=== PATIENT | female | born 1990 | race Caucasian/White ===

== ENCOUNTER 2017-08-27 08:19 | Emergency (ER) | payer MEDICAID, OTHER ==
[~2017-08-27] VITALS: Ht 154.9 cm; Wt 73.0 kg
[2017-08-27 08:32] VITALS: BP 130/80
--- NOTE | 2017-08-27 08:36 | NUR ---
Patient ambulated to bed 12. RN evaluating patient at bedside.
--- NOTE | 2017-08-27 08:40 | NUR ---
27f presents to the ER with 7/10 "sharp" intermittent RUQ abd pain radiating to R Flank/Shoulder area x "couple of weeks" with intemittent vomitting "green" emesis; Pt denies any diarrhea, fever, or urinary complaints; pt is aox4, rr are even and unlabored; pt positioned for comfort, bed down. nad. awaiting primary er md lala. will continue to monitor.
--- NOTE | 2017-08-27 08:45 | NUR ---
er md rae by bedside examining pt
[2017-08-27] MEDS ORDERED: DICYCLOMINE HCL LIQUID 20 MG, ALUMINUM HYD/MAG/SIMETHICONE 30 ML, LIDOCAINE VISCOUS 2% ... PO ONE ×3 (08:50)
[2017-08-27] MEDS ORDERED: KETOROLAC 30 MG/ML VIAL IM ONE (08:50)
--- NOTE | 2017-08-27 09:09 | NUR ---
us by bedside
[2017-08-27 09:14] LABS: APPEARANCE,URINE HAZY (CLEAR); BILIRUBIN,URINE NEGATIVE (NEGATIVE); BLOOD, URINE TRACE-I (NEGATIVE); COLOR,URINE YELLOW (YELLOW); LEUKOCYTE ESTERASE ,URINE 1+ (NEGATIVE); NITRITE, URINE NEGATIVE (NEGATIVE); UGLUCOSE NEGATIVE (NEGATIVE)
[2017-08-27 09:16] LABS: ANION GAP 12.9 (8-16); CARBON DIOXIDE 23.8 mmol/L (21-32); CREATININE 0.7 mg/dL (0.6-1.3); POTASSIUM 3.7 mmol/L (3.5-5.1)
[2017-08-27 09:22] LABS: ALBUMIN 3.7 g/dL (3.4-5.0); TOTAL BILIRUBIN 0.4 mg/dL (0.0-1.0)
[2017-08-27 09:42] LABS: RBC,URINE NONE SEEN /HPF (0-5)
[2017-08-27 09:54] LABS: BASOPHILS # (AUTO) 0.2 K/uL (0.00-0.22); EOSINOPHILS # (AUTO) 0.1 K/uL (0-0.4); EOSINOPHILS % (AUTO) 2.2 % (0.0-4.0); HEMATOCRIT 39.4 % (36-48); HEMOGLOBIN 13.2 g/dL (12.0-16.0); LYMPHOCYTES # (AUTO) 1.2 K/uL (2.5-16.5); LYMPHOCYTES % (AUTO) 22.2 % (20.5-51.1); MEAN CORPUSCULAR HEMOGLOBIN 28 pg (27-31); MEAN CORPUSCULAR HGB CONC 34 g/dL (33-37); MEAN CORPUSCULAR VOLUME 85 fL (80-94); MONOCYTES # (AUTO) 0.4 K/uL (0.8-1.0); MONOCYTES % (AUTO) 6.9 % (1.7-9.3); NEUTROPHILS # (AUTO) 3.7 K/uL (1.8-7.7); NEUTROPHILS % (AUTO) 65.7 % (42.2-75.2); PLATELET COUNT (AUTO) 283 K/uL (140-450); RED BLOOD CELL COUNT(AUTO) 4.65 MIL/uL (4.20-5.40); WHITE BLOOD COUNT (AUTO) 5.6 K/uL (4.8-10.8)
--- NOTE | 2017-08-27 10:28 | NUR ---
Patient discharged with v/s stable. Written and verbal after care instructions given and explained. Patient alert, oriented and verbalized understanding of instructions. Ambulatory with steady gait. All questions addressed prior to discharge. ID band removed. Patient advised to follow up with PMD. Rx of Naprosyn and Tylenol with Codeine given. Patient educated on indication of medication including possible reaction and side effects. Opportunity to ask questions provided and answered.
[2017-08-27 10:29] VITALS: BP 106/76
== END 2017-08-27 10:28 | disposition home or self-care (01) ==
LOC: MED 08:19
DX: K80.20 Calculus of gallbladder without cholecystitis without obstruction (principal)
CPT/HCPCS: 36415; 76705; 80053; 81001; 83690; 85025; 87086; 96372; 99285; J1885; Q0092; 81025

== ENCOUNTER 2017-09-20 19:10 | Inpatient (IN) | payer MEDICAID ==
[~2017-09-20] VITALS: Ht 154.9 cm; Wt 72.1 kg
[2017-09-20 19:19] VITALS: BP 132/76
--- NOTE | 2017-09-20 19:26 | NUR ---
TO LOBBY, A/W BED, VSLisa, SARINA, ERMApoorva NOTED
--- NOTE | 2017-09-20 19:35 | NUR ---
PT TAKEN TO BED 11
--- NOTE | 2017-09-20 20:01 | NUR ---
27Y/F PT. PRESESNT TO ED WITH C/O RT. FLANK PAIN X 2 WKS. PT. WAS DIAGNOSED GALL STONE, PAIN EXIST. AAO X4, AMBULATORY WITH STEADYGAIT. RESPIRATIONS ROOM AIR, EVEN AND UNLABORED. ABODMEN SOFT, NON TENDER. ACTIVE BS X4. C/O PAIN 06/03. VSS, ER MADE AWARE OF PT. STATUS.
--- NOTE | 2017-09-20 20:10 | NUR ---
Patient being evaluated by at bedside.
[2017-09-20] MEDS ORDERED: NACL 0.9% 500 ML IV ONE (20:14)
[2017-09-20] MEDS ORDERED: KETOROLAC 30 MG/ML VIAL IVP ONE (20:15)
[2017-09-20] MEDS ORDERED: ONDANSETRON 4 MG/2 ML VIAL IVP ONE (20:15)
[2017-09-20 21:22] LABS: BASOPHILS # (AUTO) 0.2 K/uL (0.00-0.22); BASOPHILS % (AUTO) 4.9 % (0.0-2.0); EOSINOPHILS # (AUTO) 0.1 K/uL (0-0.4); EOSINOPHILS % (AUTO) 1.8 % (0.0-4.0); HEMATOCRIT 40.5 % (36-48); HEMOGLOBIN 13.5 g/dL (12.0-16.0); LYMPHOCYTES # (AUTO) 1.5 K/uL (2.5-16.5); MEAN CORPUSCULAR HEMOGLOBIN 29 pg (27-31); MEAN CORPUSCULAR HGB CONC 33 g/dL (33-37); MEAN CORPUSCULAR VOLUME 86 fL (80-94); MONOCYTES # (AUTO) 0.4 K/uL (0.8-1.0); MONOCYTES % (AUTO) 7.8 % (1.7-9.3); NEUTROPHILS # (AUTO) 2.3 K/uL (1.8-7.7); NEUTROPHILS % (AUTO) 51.5 % (42.2-75.2); PLATELET COUNT (AUTO) 257 K/uL (140-450); RED BLOOD CELL COUNT(AUTO) 4.71 MIL/uL (4.20-5.40); RED CELL DISTRIBUTION WIDTH 12.6 % (11.6-13.7); WHITE BLOOD COUNT (AUTO) 4.5 K/uL (4.8-10.8)
[2017-09-20 21:33] LABS: ANION GAP 11.3 (8-16); CARBON DIOXIDE 30.3 mmol/L (21-32); CREATININE 0.6 mg/dL (0.6-1.3); POTASSIUM 3.6 mmol/L (3.5-5.1)
[2017-09-20 21:44] LABS: ALBUMIN 4.1 g/dL (3.4-5.0); TOTAL BILIRUBIN 2.9 mg/dL (0.0-1.0)
[2017-09-20] MEDS ORDERED: ACETAMINOPHEN 325 MG TAB PO PRN (22:15)
--- NOTE | 2017-09-20 22:45 | NUR ---
Patient will be admitted to care of . Admited to TELE. Will go to room. Belongings list completed. Report to SHANNAN ZENG.
--- NOTE | 2017-09-20 22:45 | NUR ---
PT ARRIVED VIA WHEELCHAIR FROM ED, PT STABLE, AMBULATED TO RESTROOM FIRST THEN WALKED TO BED, TOLERATED WELL, GAIT STABLE, IV TO L AC 18 G RUNNING NS @ 100ML/HR, INFUSING WELL, PT STATED PAIN TOLERABLE AT 4/10 ON THE ABD, INITIAL ASSESSMENT DONE, ALL SAFETY PRECAUTION MET, WILL CONTINUE TO MONITOR. Addendum: 09/21/17 at 0129 by Latonya Ken RN BEDSIDE REPORT RECEIVED FROM ED NURSEEMMIE RN
[2017-09-20 23:00] VITALS: BP 118/74
[2017-09-20] MEDS: NACL 0.9% 1,000 ML IV SCH (23:00)
--- NOTE | 2017-09-20 23:40 | NUR ---
DR. WILSON BY BEDSIDE TALKING TO PT, PT STABLE, NO DISTRESS NOTED.
[2017-09-21 00:10] LABS: CHOL/HDL RATIO 2.9 (1-4.5); FREE T4 (FREE THYROXINE) 1.14 ng/dL (0.76-1.46); PHOSPHORUS 3.3 mg/dL (2.5-4.9); THYROID STIMULATING HORMONE 1.18 uIU/mL (0.34-3.74)
[2017-09-21] MEDS ORDERED: HYDROmorphone 1 MG/ML AMP IVP PRN (00:15)
[2017-09-21] MEDS ORDERED: KETOROLAC 30 MG/ML VIAL IM ONE (00:20)
[2017-09-21 00:24] LABS: PROTHROMBIN TIME 10.4 secs (10.8-13.4)
[2017-09-21] MEDS ORDERED: HYDROmorphone PFS 2 MG/ML SYR IVP PRN (01:08)
[2017-09-21] MEDS ORDERED: KETOROLAC 30 MG/ML VIAL ONE (01:10)
--- NOTE | 2017-09-21 01:13 | NUR ---
PT C/O OF PAIN ON RUQ OF THE ABD, 01/01, PAIN MEDICATION GIVEN PER DR AN. VERIFIED WITH DR. WILSON REGARDING PAIN MEDICATION ROUTE, DR STATED IVP IS OK. WILL CONTINUED ADMINISTRATION OF PAIN MEDICATION. PT TOLERATED WELL, NO DISTRESS NOTED, CALL LIGHT WITHIN REACH, WILL CONTINUE TO MONITOR.
--- NOTE | 2017-09-21 02:55 | NUR ---
CHECKED ON PT, PT SLEEPING, NO DISTRESS NOTED, CALL LIGHT WITHIN REACH, WILL CONTINUE TO MONITOR.
[2017-09-21 04:00] VITALS: BP 96/59
[2017-09-21] MEDS: NACL 0.9% 1,000 ML IV SCH ×3 (04:34→18:12)
--- NOTE | 2017-09-21 06:35 | NUR ---
PT WAS PICKED UP BY [employer] FOR [facility] VIA WHEELCHAIR, PT LEFT THE UNIT IN STABLE CONDITION, NO DISTRESS NOTED.
--- NOTE | 2017-09-21 07:11 | NUR ---
ENDORSED PLAN OF CARE TO DAY SHIFT NURSE NAIMA RN FOR CONTINUITY OF CARE, PT STILL NOT BACK FROM [facility].
--- NOTE | 2017-09-21 07:12 | NUR ---
RECEIVED REPORT FROM THE SOLUTION ADVISOR NURSE FOR CONTINUITY OF CARE. PT IS OFF THE UNIT FOR H[facility] SCAN AT [facility]. PT HASN'T RETURNED YET. UPDATED THE BOARD. WILL AWAIT PT'S RETURN. PER CHARGE NURSE, ERCP PROCEDURE IS SCHEDULE ON THE BIG BOARD. WILL GET CONSENT AND WILL DO THE PRE-OP CHECKLIST.
[2017-09-21 07:20] LABS: BASOPHILS # (AUTO) 0.2 K/uL (0.00-0.22); BASOPHILS % (AUTO) 4.9 % (0.0-2.0); EOSINOPHILS # (AUTO) 0.1 K/uL (0-0.4); EOSINOPHILS % (AUTO) 2.7 % (0.0-4.0); HEMATOCRIT 36.7 % (36-48); HEMOGLOBIN 12.7 g/dL (12.0-16.0); LYMPHOCYTES # (AUTO) 1.6 K/uL (2.5-16.5); LYMPHOCYTES % (AUTO) 31.7 % (20.5-51.1); MEAN CORPUSCULAR HEMOGLOBIN 30 pg (27-31); MEAN CORPUSCULAR HGB CONC 35 g/dL (33-37); MEAN CORPUSCULAR VOLUME 86 fL (80-94); MONOCYTES # (AUTO) 0.4 K/uL (0.8-1.0); MONOCYTES % (AUTO) 9.1 % (1.7-9.3); NEUTROPHILS # (AUTO) 2.6 K/uL (1.8-7.7); NEUTROPHILS % (AUTO) 51.6 % (42.2-75.2); PLATELET COUNT (AUTO) 239 K/uL (140-450); RED BLOOD CELL COUNT(AUTO) 4.27 MIL/uL (4.20-5.40); RED CELL DISTRIBUTION WIDTH 12.9 % (11.6-13.7); WHITE BLOOD COUNT (AUTO) 4.9 K/uL (4.8-10.8)
[2017-09-21 07:55] LABS: ANION GAP 12.6 (8-16); CARBON DIOXIDE 26.4 mmol/L (21-32); CREATININE 0.6 mg/dL (0.6-1.3)
[2017-09-21 07:57] LABS: MAGNESIUM 1.9 mg/dL (1.8-2.4); PHOSPHORUS 3.6 mg/dL (2.5-4.9)
--- NOTE | 2017-09-21 07:58 | NUR ---
PT RETURNED BACK TO BED FROM [facility]. WILL TAKE HER AGAIN IN AN HOUR FOR DELAY PICTURES. EXPLAINED TO TECH THAT SHE IS SCHEDULED FOR ERCP AT 0830. SHE WILL TAKE HER BACK NOW AND START DELAY PICTURES.
[2017-09-21] MEDS: DOCUSATE SODIUM 100 MG GELCAP PO SCH ×2 (08:04→20:34)
--- NOTE | 2017-09-21 08:16 | NUR ---
OR HERE TO TAKE PT FOR PROCEDURE. ADVISED THEM PT IS AT [facility] FOR DELAYED PICTURES, HIDA SCAN. THEY WILL TAKE BED AND CHART. THEY WILL TAKE HER FROM [facility] TO THE OR DIRECTLY. GAVE THEM THE UNSIGNED CONSENT. THEY WILL GET HER SIGNATURE. PREOP CHECK LIST DONE. WILL AWAIT PT'S RETURN.
[2017-09-21] MEDS ORDERED: PROPOFOL 200 MG/20 ML VIAL IV ONE (08:45)
[2017-09-21] MEDS: PANTOPRAZOLE 40 MG INJ VIAL IVP SCH (08:55)
[2017-09-21] MEDS ORDERED: MIDAZOLAM 2 MG/2 ML VIAL ONE (08:56)
[2017-09-21] MEDS ORDERED: fentaNYL 0.05 MG/ML VIAL ONE (08:56)
[2017-09-21] MEDS ORDERED: LACTATED RINGERS 1,000 ML IV SCH (09:22)
--- NOTE | 2017-09-21 09:24 | NUR ---
PATIENT HAS BEEN SCREENED AND CATEGORIZED HIGH NUTRITION RISK. PATIENT WILL BE SEEN WITHIN 1-2 DAYS OF ADMISSION. 09/21/17 - 09/22/17 JAYLON CAREY MBA, RD
[2017-09-21] MEDS ORDERED: diphenhydrAMINE 50 MG/ML VIAL IVP PRN (09:25)
[2017-09-21] MEDS ORDERED: MEPERIDINE 25 MG/ML SYR IVP PRN (09:25)
[2017-09-21] MEDS ORDERED: ONDANSETRON 4 MG/2 ML VIAL IVP PRN (09:25)
[2017-09-21 10:10] VITALS: BP 97/60
--- NOTE | 2017-09-21 10:10 | NUR ---
PT ARRIVED BACK FROM O/R. 2 OR NURSES ACCOMPANIED PT. PT AWAKE AND ORIENTED. DENIES PAIN. V/S STABLE. NO SIGNS OF DISTRESS. INTRODUCED MYSELF. IV ON L AC 18G LR INFUSING AT THIS TIME. WILL CONTINUE TO MONITOR PT.
--- NOTE | 2017-09-21 11:20 | NUR ---
PT RESTING COMFORTABLY. NO SIGNS OF DISTRESS. NO COMPLAINTS AT THIS TIME. WONDERING IF DR. PATEL WILL WILL BE HERE SOON, TO DECIDE IF SHE WILL HAVE SURGERY OR NOT. WILL CONTINUE TO MONITOR PT.
[2017-09-21 12:00] VITALS: BP 110/70
--- NOTE | 2017-09-21 13:19 | NUR ---
PT RESTING COMFORTABLY. FINISHED THE LR. STARTED HER BACK ON NS AT 150ML/HR. SIGNIFICANT OTHER AT BEDSIDE. NO SIGNS OF DISTRESS. NO COMPLAINTS AT THIS TIME. WILL CONTINUE TO MONITOR PT.
--- NOTE | 2017-09-21 13:55 | NUR ---
DR. PATEL IS HERE. HE ASSESSED PT AND EXPLAINED THE LAP BRAYDON PROCEDURE. PT VERBALIZED UNDERSTANDING. SIGNED CONSENT FOR PROCEDURE. IN CHART. SHE WILL EAT TODAY AND NPO AT MIDNIGHT. SHE WILL HAVE PROCEDURE TOMORROW.
--- NOTE | 2017-09-21 15:47 | NUR ---
PT SLEEPING. SIGNIFICANT OTHER AT BEDSIDE. NO COMPLAINTS. WILL CONTINUE TO MONITOR PT.
[2017-09-21 16:00] VITALS: BP 93/55
--- NOTE | 2017-09-21 18:00 | NUR ---
DINNER TRAY DIDN'T COME. CALLED AND ASKED THEM TO BRING A LATE TRAY. PT AWARE THAT SHE IS TO BE NPO AT MIDNIGHT FOR PROCEDURE TOMORROW.
--- NOTE | 2017-09-21 19:11 | NUR ---
ENDORSED PT TO THE POWER PLANT INSTALLER NURSE AT BEDSIDE FOR CONTINUITY OF CARE. PT IN STABLE CONDITION.
--- NOTE | 2017-09-21 19:15 | NUR ---
RECEIVED REPORT FROM AM NURSE. PT RESTING IN BED, AOX4, AMBULATORY, ABLE TO VERBALIZE NEEDS. PT IS S/P ERCP WITH STONE EXTRACTION (09/21). PT DENIES PAIN OR NAUSEA, PT REPORTS EATING DINNER TODAY. DISCUSSED PLAN OF CARE WITH PT, PT TO BE NPO AT MIDNIGHT FOR LAP CHOLECYSTECTOMY, POSSIBLE OPEN, POSSIBLE EXP LAP, PT VERBALIZED UNDERSTANDING. IV ACCESS ASYMPTOMATIC, PATENT AND INTACT, IVF INFUSING WELL. ALL NEEDS MET. SAFETY MEASURES ENSURED. CALL LIGHT WITHIN REACH.
[2017-09-21 20:00] VITALS: BP 105/64
--- NOTE | 2017-09-21 20:37 | NUR ---
ADMINISTERED DUE MED COLACE PO WITH EDUCATION. PT VERBALIZED UNDERSTANDING, TOLERATED MED WELL. PT REPORTED THAT DR WILSON CAME TO SPEAK WITH HER ABOUT TOMORROW'S SURGERY, ALL HER QUESTIONS ANSWERED, PT VERBALIZED UNDERSTANDING. ALL NEEDS MET. IVF INFUSING WELL. SAFETY MEASURES ENSURED. CALL LIGHT WITHIN REACH.
[2017-09-22] VITALS: BP 101/69
--- NOTE | 2017-09-22 00:03 | NUR ---
PT RESTING COMFORTABLY, PT DENIES PAIN AND NAUSEA. DISCUSSED WITH PT TO REMAIN NPO, PT VERBALIZED UNDERSTANDING. ALL NEEDS MET. IVF INFUSING WELL. SAFETY MEASURES ENSURED. CALL LIGHT WITHIN REACH.
[2017-09-22] MEDS: NACL 0.9% 1,000 ML IV SCH ×2 (01:01→07:26)
--- NOTE | 2017-09-22 03:44 | NUR ---
PT SLEEPING COMFORTABLY, NO S/S OF ACUTE DISTRESS. ALL NEEDS MET. IVF INFUSING WELL. SAFETY MEASURES ENSURED. CALL LIGHT WITHIN REACH.
[2017-09-22 04:00] VITALS: BP 102/58
--- NOTE | 2017-09-22 07:15 | NUR ---
ENDORSED PLAN OF CARE TO AM NURSE. CONDITION STABLE.
--- NOTE | 2017-09-22 07:16 | NUR ---
RECEIVED REPORT FROM EQUINE DENTIST NURSE. PATIENT LYING DOWN IN BED SLEEPING, AROUSABLE BY VOICE. NO DISTRESS NOTED. DENIES ANY PAIN AT THIS TIME. RESPIRATIONS EVEN, UNLABORED, ON ROOM AIR. AAOX4, CALM, COOPERATIVE, SKIN COLOR APPROPRIATE TO ETHNICITY, WARM TO TOUCH. SKIN IS INTACT. LUNGS CTA ON ALL LOBES. ABDOMEN SOFT, NON-DISTENDED. IV SITE INTACT, PATENT AND INFUSING IVF PER ORDERS. REVIEWED PLAN OF CARE WITH PATIENT. PATIENT SCHEDULED FOR LAP CHOLECYSTECTOMY AROUND 1130 TODAY. PATIENT VERBALIZED UNDERSTANDING. SAFETY MEASURES IN PLACE, CALL LIGHT WITHIN REACH. WILL CONTINUE TO MONITOR.
[2017-09-22 07:20] LABS: ALBUMIN 2.9 g/dL (3.4-5.0); ANION GAP 11.4 (8-16); CARBON DIOXIDE 26.3 mmol/L (21-32); CREATININE 0.5 mg/dL (0.6-1.3); POTASSIUM 3.7 mmol/L (3.5-5.1); TOTAL BILIRUBIN 3.1 mg/dL (0.0-1.0)
[2017-09-22 07:21] LABS: HEMATOCRIT 35.2 % (36-48); HEMOGLOBIN 11.7 g/dL (12.0-16.0); MEAN CORPUSCULAR HEMOGLOBIN 29 pg (27-31); MEAN CORPUSCULAR HGB CONC 33 g/dL (33-37); MEAN CORPUSCULAR VOLUME 87 fL (80-94); PLATELET COUNT (AUTO) 214 K/uL (140-450); RED BLOOD CELL COUNT(AUTO) 4.07 MIL/uL (4.20-5.40); RED CELL DISTRIBUTION WIDTH 12.9 % (11.6-13.7); WHITE BLOOD COUNT (AUTO) 4.9 K/uL (4.8-10.8)
[2017-09-22 07:49] LABS: BARBITURATE, URINE NEG. ng/ml (NEG <=200); BENZODIAZEPINE, URINE POS. ng/mL (NEG <=200); CANNABINOID, URINE NEG. ng/mL (NEG <=50); COCAINE, URINE NEG. ng/mL (NEG <=300); OPIATE, URINE NEG. ng/mL (NEG <=2000); PHENCYCLIDINE SCREEN,URINE NEG. ng/mL (NEG <=25)
[2017-09-22 07:53] LABS: APPEARANCE,URINE CLEAR (CLEAR); BILIRUBIN,URINE 2+ (NEGATIVE); BLOOD, URINE NEGATIVE (NEGATIVE); COLOR,URINE YELLOW (YELLOW); LEUKOCYTE ESTERASE ,URINE TRACE (NEGATIVE); NITRITE, URINE NEGATIVE (NEGATIVE); PH,URINE 6.5 (5.0-9.0); UGLUCOSE NEGATIVE (NEGATIVE)
[2017-09-22 08:00] VITALS: BP 105/54
[2017-09-22 08:15] LABS: RBC,URINE 0-5 (RARE) /HPF (0-5); WBC,URINE 0-5 (RARE) /HPF (0-5)
[2017-09-22 08:30] LABS: EOSINOPHILS % (MANUAL) 3 % (0-4); LYMPHOCYTES % (MANUAL) 50 % (20-46); MONOCYTES % (MANUAL) 8 % (5-12)
[2017-09-22] MEDS: PANTOPRAZOLE 40 MG INJ VIAL IVP SCH (09:05)
[2017-09-22] MEDS: DOCUSATE SODIUM 100 MG GELCAP PO SCH ×2 (09:31→20:20)
--- NOTE | 2017-09-22 09:34 | NUR ---
PATIENT SITTING IN BED PLAYING ON HER PHONE. NO DISTRESS NOTED. DENIES ANY PAIN AT THIS TIME. SCHEDULED MEDICATIONS DUE GIVEN. SAFETY MEASURES IN PLACE, CALL LIGHT WITHIN REACH. WILL CONTINUE TO MONITOR.
--- NOTE | 2017-09-22 11:15 | NUR ---
OR NURSES ON UNIT TO TAKE PATIENT DOWN TO OR FOR LAP CHOLECYSTECTOMY. WILL CONTINUE TO MONITOR WHEN PATIENT COMES BACK ON UNIT.
[2017-09-22] MEDS ORDERED: BUPIVACAINE-MPF 0.25% 30 ML VIAL INJ ONE (11:21)
[2017-09-22] MEDS ORDERED: SUCCINYLCHOLINE CHLORIDE 200 MG/10 ML VIAL IV ONE (11:30)
[2017-09-22] MEDS ORDERED: ONDANSETRON 4 MG/2 ML VIAL IVP ONE (11:30)
[2017-09-22] MEDS ORDERED: ROCURONIUM 50 MG/5 ML VIAL IV ONE (11:30)
[2017-09-22] MEDS ORDERED: DESFLURANE 240 ML BTL INH ONE (11:30)
[2017-09-22] MEDS ORDERED: KETOROLAC 60 MG/2 ML VIAL IM ONE (11:30)
[2017-09-22] MEDS ORDERED: GLYCOPYRROLATE 0.2 MG/ML VIAL IV ONE (11:30)
[2017-09-22] MEDS ORDERED: PROPOFOL 200 MG/20 ML VIAL IV ONE (11:30)
[2017-09-22] MEDS ORDERED: DEXAMETHASONE 4 MG/ML VIAL IVP ONE (11:30)
[2017-09-22] MEDS ORDERED: PHENYLEPHRINE 10 MG/ML VIAL IM ONE (11:30)
[2017-09-22] MEDS ORDERED: MEPERIDINE 50 MG/ML SYR ONE (11:46)
[2017-09-22] MEDS ORDERED: MIDAZOLAM 2 MG/2 ML VIAL ONE (11:46)
[2017-09-22] MEDS ORDERED: fentaNYL 0.05 MG/ML VIAL ONE (11:46)
[2017-09-22] MEDS ORDERED: LEVOFLOXACIN 500 MG/D5W PREMIX 100 ML IV ONE (12:15)
[2017-09-22] MEDS ORDERED: MIDAZOLAM 2 MG/2 ML VIAL IVP ONE (12:30)
[2017-09-22] MEDS ORDERED: MEPERIDINE 25 MG/ML SYR IVP PRN ×2 (12:30)
[2017-09-22] MEDS ORDERED: THROMBIN KIT 20 MU VIAL TP ONE (12:49)
[2017-09-22] MEDS: HYDROmorphone PFS 2 MG/ML SYR IVP PRN ×4 (13:50→14:20)
[2017-09-22] MEDS ORDERED: HYDROmorphone PFS 2 MG/ML SYR ONE (13:53)
[2017-09-22 14:30] VITALS: BP 106/66
--- NOTE | 2017-09-22 14:30 | NUR ---
PATIENT BACK ON MST UNIT AND BACK TO ROOM FROM PACU. NO DISTRESS NOTED. PAIN WITHIN TOLERABLE AT THIS TIME ON ABDOMEN DUE TO SURGERY. PATIENT STILL RECOVERING FROM ANESTHESIA. REPORT RECEIVED FROM OR NURSE. V/S TAKEN AND STABLE. PATIENT DROWSY AT THIS TIME, WILL LET HER REST. IVF CONNECTED AND RUNNING PER MD ORDERS. SAFETY MEASURES IN PLACE, CALL LIGHT WITHIN REACH. WILL CONTINUE TO MONITOR.
[2017-09-22] MEDS: DEXT 5% / NACL 0.45% 1,000 ML IV SCH (14:58)
--- NOTE | 2017-09-22 16:20 | NUR ---
09/22/2017 RD INITIAL ASSESSMENT COMPLETED PLEASE REFER TO NUTRITION ASSESSMENT UNDER CARE ACTIVITY FOR ESTIMATED NUTRITIONAL NEEDS. CONTINUE NPO STATUS UNTIL MEDICALLY APPROPRIATE TO ADVANCE DIET. ADVANCE DIET TOLERATED ONCE APPROPRIATE TO REGULAR DIET RD TO FOLLOW-UP IN 5-7 DAYS PATIENT IS LOW RISK. KADI ERIC, RD
[2017-09-22] MEDS: HYDROcodone/APAP 7.5/325 MG 1 TAB PO PRN ×2 (16:21→23:20)
--- NOTE | 2017-09-22 16:23 | NUR ---
PATIENT LYING IN BED WITH FAMILY MEMBER AT BEDSIDE. WATCHING TV. COMPLAINTS OF DULL ABDOMINAL PAIN. WILL MEDICATE WITH NORCO PER ORDERS. IV SITE INTACT, PATENT, AND INFUSING IVF PER ORDERS. SAFETY MEASURES IN PLACE, CALL LIGHT WITHIN REACH. WILL CONTINUE TO MONITOR.
--- NOTE | 2017-09-22 16:53 | NUR ---
PATIENT LYING DOWN IN BED COMFORTABLY. FAMILY MEMBER AT BEDSIDE. NO DISTRESS NOTED. PAIN DECREASING WITH NORCO GIVEN EARLIER. WORKED WITH INCENTIVE SPIROMETER WITH PATIENT. UNABLE TO DO MUCH AT THIS TIME DUE TO PAIN ON ABD DUE TO S/P LAP CHOLECYSTECTOMY. WILL CONTINUE TO MONITOR.
--- NOTE | 2017-09-22 18:07 | NUR ---
PATIENT SITTING IN BED WITH DINNER TRAY IN FRONT. NO DISTRESS NOTED. DENIES ANY PAIN AT THIS TIME. FAMILY MEMBER AT BEDSIDE. SAFETY MEASURES IN PLACE, CALL LIGHT WITHIN REACH. WILL CONTINUE TO MONITOR.
--- NOTE | 2017-09-22 18:37 | NUR ---
PATIENT REPORTS EATING A LITTLE BIT OF THE SOUP FOR DINNER. DENIES ANY NAUSEA/VOMITING. REPORTS NO VOIDING YET. SAFETY MEASURES IN PLACE, CALL LIGHT WITHIN REACH. WILL CONTINUE TO MONITOR.
--- NOTE | 2017-09-22 19:15 | NUR ---
GAVE REPORT TO COMMUNICATIONS ENGINEER NURSE FOR CONTINUITY OF CARE. PATIENT IN STABLE CONDITION.
--- NOTE | 2017-09-22 19:30 | NUR ---
RECEIVED REPORT FROM AM NURSE. PT RESTING IN BED, AOX4, AMBULATORY, ABLE TO VERBALIZE NEEDS. PT IS S/P CHEYENNE BRYSON TODAY (09/22/17), 4 INCISIONS ON ABD NOTED WITH GLUE. PT REPORTS ABD PAIN AT THIS TIME AFTER GOING TO THE RESTROOM, WILL MEDICATE. PT DENIES NAUSEA, REPORTS POOR DINNER INTAKE DUE TO ABD PAIN. DISCUSSED PLAN OF CARE WITH PT. PT VERBALIZED UNDERSTANDING. IV ACCESS ASYMPTOMATIC, PATENT AND INTACT. IVF INFUSING WELL. ALL NEEDS MET. SAFETY MEASURES ENSURED. CALL LIGHT WITHIN REACH.
[2017-09-22 20:00] VITALS: BP 119/86
--- NOTE | 2017-09-22 20:23 | NUR ---
PT REPORTS RELIEF IN PAIN. ADMINISTERED DUE MED COLACE WITH EDUCATION. PT VERBALIZED UNDERSTANDING, TOLERATED MED WELL. ALL NEEDS MET. IVF INFUSING WELL. SAFETY MEASURES ENSURED. CALL LIGHT WITHIN REACH.
[2017-09-22] MEDS: ONDANSETRON 4 MG/2 ML VIAL IVP PRN (20:59)
--- NOTE | 2017-09-22 21:04 | NUR ---
PT C/O NAUSEA AND SLIGHT DIZZINESS AFTER DILAUDID, PT STATED NORCO PO PRN WOULD WORK BETTER FOR HER. ADMINISTERED ZOFRAN IVP PRN WITH EDUCATION, PT VERBALIZED UNDERSTANDING, TOLERATED MED WELL. ALL NEEDS MET. SAFETY MEASURES ENSURED. CALL LIGHT WITHIN REACH.
--- NOTE | 2017-09-22 23:30 | NUR ---
PT C/O ABD PAIN, SEE PAIN ASSESSMENT, ADMINISTERED NORCO PO PRN ORDERED WITH EDUCATION. PT VERBALIZED UNDERSTANDING. PT DENIES NAUSEA/VOMITING, REPORTS BEING ABLE TO TOLERATE FLUIDS, WILL NOTIFY MD. ALL NEEDS MET. IVF INFUSING WELL. SAFETY MEASURES ENSURED.
[2017-09-23] VITALS: BP 123/81
[2017-09-23] MEDS: DEXT 5% / NACL 0.45% 1,000 ML IV SCH ×2 (00:06→10:45)
[2017-09-23] MEDS: ONDANSETRON 4 MG/2 ML VIAL IVP PRN (02:34)
--- NOTE | 2017-09-23 02:34 | NUR ---
PT C/O NAUSEA AND ABD PAIN AFTER AMBULATING TO THE RESTROOM. ADMINISTERED ZOFRAN IVP PRN ORDERED, WILL ADMINISTER PAIN MED WHEN DUE. PT VERBALIZED UNDERSTANDING, TOLERATED MED WELL. ALL NEEDS MET. IVF INFUSING WELL. SAFETY MEASURES ENSURED. CALL LIGHT WITHIN REACH.
[2017-09-23] MEDS: HYDROcodone/APAP 7.5/325 MG 1 TAB PO PRN ×2 (03:44→09:11)
[2017-09-23] MEDS ORDERED: PROMETHAZINE 25 MG TAB PO PRN ×2 (06:30→09:25)
[2017-09-23 07:06] LABS: BASOPHILS # (AUTO) 0.1 K/uL (0.00-0.22); BASOPHILS % (AUTO) 1.6 % (0.0-2.0); EOSINOPHILS % (AUTO) 0.5 % (0.0-4.0); HEMATOCRIT 35.4 % (36-48); HEMOGLOBIN 12.1 g/dL (12.0-16.0); LYMPHOCYTES # (AUTO) 1.6 K/uL (2.5-16.5); LYMPHOCYTES % (AUTO) 19.8 % (20.5-51.1); MEAN CORPUSCULAR HEMOGLOBIN 29 pg (27-31); MEAN CORPUSCULAR HGB CONC 34 g/dL (33-37); MEAN CORPUSCULAR VOLUME 86 fL (80-94); MONOCYTES # (AUTO) 0.6 K/uL (0.8-1.0); MONOCYTES % (AUTO) 7.6 % (1.7-9.3); NEUTROPHILS % (AUTO) 70.5 % (42.2-75.2); PLATELET COUNT (AUTO) 250 K/uL (140-450); RED BLOOD CELL COUNT(AUTO) 4.14 MIL/uL (4.20-5.40); WHITE BLOOD COUNT (AUTO) 8.3 K/uL (4.8-10.8)
--- NOTE | 2017-09-23 07:15 | NUR ---
ENDORSED PLAN OF CARE TO AM NURSE. CONDITION STABLE.
--- NOTE | 2017-09-23 07:20 | NUR ---
RECEIVED REPORT FROM ACID CONCENTRATOR NURSE. PT WAS ASLEEP EASILY AWAKEN. AOX4. AMBULATORY. NO SIGNS OF RESPIRATORY DISTRESS. IV ON THE LEFT AC, PATENT, INTACT, FLUSHING WELL. 4 ABDOMINAL INCISIONS ARE INTACT NO REDNESS OR INFLAMMATION NOTED NO DRAINAGE. DISCUSSED PLAN OF CARE WITH PT. PT VERBALIZED UNDERSTANDING. SAFETY/FALL PRECAUTIONS IN PLACE. CALL LIGHT WITHIN REACH. WILL CONTINUE TO MONITOR.
[2017-09-23 08:00] VITALS: BP 101/61
[2017-09-23 08:33] LABS: ANION GAP 13.2 (8-16); CARBON DIOXIDE 26.7 mmol/L (21-32); POTASSIUM 3.9 mmol/L (3.5-5.1)
[2017-09-23 08:34] LABS: CREATININE 0.6 mg/dL (0.6-1.3); TOTAL BILIRUBIN 1.3 mg/dL (0.0-1.0)
[2017-09-23] MEDS: DOCUSATE SODIUM 100 MG GELCAP PO SCH (09:13)
--- NOTE | 2017-09-23 09:15 | NUR ---
PT RESTING IN BED. PAIN LEVEL REPORTED IS 4/10, "FEELING LIKE PAIN MEDICATION IS STARTING TO WEAR OFF." MEDICATED PRN WITH NORCO. PT WAS ALSO FEELING NAUSEATED. MEDICATED PRN WITH PHENERGAN. NO RESPIRATORY DISTRESS NOTED. CALL LIGHT WITHIN REACH. BED AT LOWEST SETTING.
[2017-09-23] MEDS ORDERED: ACET-2863 PO (10:55)
[2017-09-23] MEDS ORDERED: DOCU100C5 PO (10:55)
[2017-09-23] MEDS ORDERED: ONDA4TAB PO (10:57)
--- NOTE | 2017-09-23 11:25 | NUR ---
PT IN BED RESTING. PT AWARE OF PENDING DISCHARGE. PT IN NO RESPIRATORY DISTRESS. CALL LIGHT WITHIN REACH. BED IN LOWEST POSITION.
[2017-09-23] MEDS ORDERED: INFLUENZA VIRUS VACCINE QUAD 0.5 ML SYR IMVAC SCH (12:50)
--- NOTE | 2017-09-23 13:00 | NUR ---
PT RECEIVED FLU VACCINE, SHE DID NOT WANT AN INJECTION. PT THOUGHT VACCINE WOULD BE GIVEN THROUGH IV. Addendum: 09/23/17 at 1350 by Meenu Marcos RN PT DID NOT RECEIVE FLU VACCINE.
--- NOTE | 2017-09-23 13:05 | NUR ---
PT WAS DISCHARGED. IV WAS DISCONTINUED. IV INTACT. ID BAND REMOVED. PT REFUSED FLU VACCINE. PT THOUGHT IT WOULD BE ADMINISTERED THROUGH IV. PT DID NOT WANT IM INJECTION. PT STABLE UPON DISCHARGE WITH FAMILY.
--- NOTE | 2017-09-23 13:05 | NUR ---
PHOTO TAKEN OF PT ABDOMEN. DOCUMENTED AND PLACED IN PT CHART.
== END 2017-09-23 13:15 | disposition home or self-care (01) | DRG 263 ==
LOC: MED 19:10 → MTU 22:24
PROVIDERS: ADMIT Family Medicine; ATTEND Family Medicine
PROC: BF100ZZ Fluoroscopy of Bile Ducts using High Osmolar Contrast (ICD-10-PCS; 2017-09-21)
PROC: 0FC98ZZ Extirpation of Matter from Common Bile Duct, Via Natural or Artificial Opening Endoscopic (ICD-10-PCS; principal; 2017-09-21 08:30)
PROC: 0FT44ZZ Resection of Gallbladder, Percutaneous Endoscopic Approach (ICD-10-PCS; 2017-09-22)
DX: K80.63 Calculus of gallbladder and bile duct with acute cholecystitis with obstruction (principal); K85.90 Acute pancreatitis without necrosis or infection, unspecified; E11.9 Type 2 diabetes mellitus without complications; R74.0 Nonspecific elevation of levels of transaminase and lactic acid dehydrogenase [LDH]; E78.00 Pure hypercholesterolemia, unspecified; K59.00 Constipation, unspecified
CPT/HCPCS: 36415; 43260; 71045; 74018; 76001; 76705; 78445; 80048; 80053; 80305; 81001; 81025; 82150; 83036; 83690; 83735; 83880; 84100; 84439; 84443; 84484; 85025; 85610; 85730; 86886; 86900; 86901; 87081; 96361; 96374; 96375; 99285; A9510; C1727; C1769; C9113; J0330; J1100; J1170; J1885; J1956; J2175; J2250; J2370; J2405; J2704; J3010; J3490; J7030; Q0092; Q0169

== ENCOUNTER 2018-08-24 12:16 | Emergency (ER) | payer MEDICAID ==
[~2018-08-24] VITALS: Ht 167.6 cm; Wt 72.6 kg
[~2018-08-24 12:16] MED LIST: DOCU100C5 PO; HYDR-5123 PO; ONDA4TAB PO
[2018-08-24 12:19] VITALS: BP 140/87
--- NOTE | 2018-08-24 12:20 | NUR ---
PT TIRAGED AND SENT TO [facility]
--- NOTE | 2018-08-24 13:33 | NUR ---
pt ambulated to bed 10
--- NOTE | 2018-08-24 13:35 | NUR ---
28F BIB DAUGHTER C/O FEELINGS OF HEART RACING AND ANXIETY WHILE AT HOME THIS AM. STATES IT FEELS LIKE A PANIC ATTACK SHES HAD IN THE PAST. DENIES CP/SOB/NVD. AOX4 TO PERSON, PLACE, TIME, AND SITUATION WITH EVEN AND STEADY GAIT; RR ARE EVEN AND UNLABORED; CLEAR SPEECH WITH FULL SETENCES. PT IS CALM AND COOPERATIVE; PATIENT STATES PAIN OF 0/10 AT THIS TIME; VSS; PATIENT POSITIONED FOR COMFORT; HOB ELEVATED;BED DOWN. ER MD MADE AWARE OF PT STATUS.
--- NOTE | 2018-08-24 14:40 | NUR ---
er foyuly by bedside examining patient
[2018-08-24] MEDS ORDERED: LORazepam 1 MG TAB PO ONE (14:45)
--- NOTE | 2018-08-24 15:06 | NUR ---
Patient discharged with v/s stable. Written and verbal after care instructions given and explained. Patient alert, oriented and verbalized understanding of instructions. Ambulatory with steady gait. All questions addressed prior to discharge. ID band removed. Patient advised to follow up with PMD. Rx of Vistaril 25mg given. Patient educated on indication of medication including possible reaction and side effects. Opportunity to ask questions provided and answered.
[2018-08-24 15:07] VITALS: BP 132/80
== END 2018-08-24 15:06 | disposition home or self-care (01) ==
LOC: MED 12:16
DX: F41.0 Panic disorder [episodic paroxysmal anxiety] (principal); Z79.899 Other long term (current) drug therapy
CPT/HCPCS: 99284

== ENCOUNTER 2019-04-08 20:57 | Emergency (ER) | payer SELFPAY ==
[~2019-04-08] VITALS: Ht 162.6 cm; Wt 58.7 kg
[2019-04-08 21:01] VITALS: BP 149/72
--- NOTE | 2019-04-08 21:17 | NUR ---
PT AMBULATED TO BED 03 WITH STEADY GAIT.
--- NOTE | 2019-04-08 21:20 | NUR ---
29 YO FEMALE BIB SELF COMES TO ED FOR C/O LIGHTHEADEDNESS. SYMPTOMS STARTED X1 WEEK AGO ON/OFF. PT AAAOX4 PT DENIES FALL/TRAUMA. PALPABLE PULSES, SKIN PINK WARM DRY INTACT. LUNGS CLEAR EVEN UNLABORED. ABD SOFT NON DISTENDED. GURNEY LOCKED IN LOWEST POSITION. WILL UPDATE ERMD HX: ANEMIA, GALLSTONES MED: DENIES ALLERGIES: DENIES
--- NOTE | 2019-04-08 22:14 | NUR ---
Dr. Herrera examining patient.
--- NOTE | 2019-04-08 22:30 | NUR ---
Patient discharged with v/s stable. Written and verbal after care instructions given and explained. Patient verbalized understanding. Ambulatory with steady gait. All questions addressed prior to discharge. Advised to follow up with PMD.
[2019-04-08 22:36] VITALS: BP 102/65
== END 2019-04-08 22:30 | disposition home or self-care (01) ==
LOC: MED 20:57
DX: F41.0 Panic disorder [episodic paroxysmal anxiety] (principal); D64.9 Anemia, unspecified; Z79.899 Other long term (current) drug therapy
CPT/HCPCS: 81025; 82948; 93005; 99283

== ENCOUNTER 2020-02-18 20:55 | Emergency (ER) | payer OTHER ==
[~2020-02-18] VITALS: Ht 154.9 cm; Wt 76.7 kg
[2020-02-18 22:14] VITALS: BP 138/88
--- NOTE | 2020-02-18 22:19 | NUR ---
Lis cardoza in [facility] - 02/18/20 at 2220 by CLEM PT AMBULATED TO BED 12 WITH STEADY GAIT.
--- NOTE | 2020-02-18 22:25 | NUR ---
30 YO F BIB SELF FOR C/C OF 3/10 LACERATION ON LEFT HAND AFTER CUTTING AN AVOCADO AT HOME 2 HOURS AGO. LACERATION IS ABOUT 1 INCH IN LENGTH. PERIPHERAL PULSES ARE EQUAL AND REGULAR. BED LOCKED AND IN LOWEST POSITION. DENIES TAKING ANY OTC PAIN MEDS NKA MED HX: HAD A VAGINAL DELIVERY 4 WEEKS AGO NO RX
[2020-02-18] MEDS ORDERED: LIDOCAINE/EPI 1% 1:100000 20 ML VIAL INJ ONE (22:50)
--- NOTE | 2020-02-18 23:05 | NUR ---
REZAD PERFORMING LAC REPAIR AT BEDSIDE
[2020-02-19 00:05] VITALS: BP 138/88
== END 2020-02-19 00:05 | disposition home or self-care (01) ==
LOC: MED 20:55
DX: S61.213A Laceration without foreign body of left middle finger without damage to nail, initial encounter (principal); S61.215A Laceration without foreign body of left ring finger without damage to nail, initial encounter; Z79.899 Other long term (current) drug therapy; W26.0XXA Contact with knife, initial encounter; Y93.89 Activity, other specified; Y92.89 Other specified places as the place of occurrence of the external cause; Y99.8 Other external cause status
CPT/HCPCS: 12001; 99283; J2001

== ENCOUNTER 2021-03-02 18:14 | Emergency (ER) | payer BC, OTHER ==
[~2021-03-02] VITALS: Ht 154.9 cm; Wt 70.3 kg
[~2021-03-02 18:14] MED LIST changes: +HYDR-5080 PO; -HYDR-5123 PO
[2021-03-02 18:39] VITALS: BP 118/100
[2021-03-02 18:41] VITALS: BP 110/68
--- NOTE | 2021-03-02 18:54 | NUR ---
pt ambulated to bed 07.
--- NOTE | 2021-03-02 18:56 | NUR ---
31 Y/O FEMALE C/O RIGHT FLANK PAIN RADIATING TO LOW BACK 02/01 DECRIBES SHARP INTERMITTENT X7DAYS. PT STATES SHE WENT TO URGENT CARE A WEEK AGO AND DX WITH UTI, PRESCRIBED ABX WITH SYMPTOMS NOT IMPROVING. PT DENIES DYSURIA, DENIES N/V, DENIES FEVER/CHILLS. DENIES PMH NKA
--- NOTE | 2021-03-02 19:16 | NUR ---
Gave report to SHANNAN Pereira. Transfer of care at this time.
[2021-03-02 20:12] LABS: BASOPHILS % (AUTO) 0.6 % (0.0-2.0); EOSINOPHILS # (AUTO) 0.1 K/uL (0-0.4); HEMATOCRIT 40.1 % (36-48); HEMOGLOBIN 13.6 g/dL (12.0-16.0); LYMPHOCYTES # (AUTO) 2.5 K/uL (2.5-16.5); LYMPHOCYTES % (AUTO) 34.5 % (20.5-51.1); MEAN CORPUSCULAR HEMOGLOBIN 31 pg (27-31); MEAN CORPUSCULAR HGB CONC 34 g/dL (33-37); MEAN CORPUSCULAR VOLUME 90.2 fL (80-94); MONOCYTES # (AUTO) 0.5 K/uL (0.8-1.0); MONOCYTES % (AUTO) 6.3 % (1.7-9.3); NEUTROPHILS # (AUTO) 4.1 K/uL (1.8-7.7); NEUTROPHILS % (AUTO) 56.6 % (42.2-75.2); PLATELET COUNT (AUTO) 334 K/uL (140-450); RED BLOOD CELL COUNT(AUTO) 4.45 MIL/uL (4.20-5.40); RED CELL DISTRIBUTION WIDTH 13.6 % (11.6-13.7); WHITE BLOOD COUNT (AUTO) 7.2 K/uL (4.8-10.8)
[2021-03-02 20:24] LABS: ALBUMIN 4.8 g/dL (3.4-5.0); ANION GAP 12.8 (8-16); CREATININE 0.6 mg/dL (0.6-1.3); POTASSIUM 3.8 mmol/L (3.5-5.1); TOTAL BILIRUBIN 0.4 mg/dL (0.0-1.0)
[2021-03-02] MEDS ORDERED: ACET-8386 PO (21:25)
[2021-03-02] MEDS ORDERED: CEPH-588 PO (21:25)
--- NOTE | 2021-03-02 21:25 | NUR ---
ALL RESULTS BACK AND NOTED BY ERMD AND FOR D/C
[2021-03-02 21:35] VITALS: BP 122/70
--- NOTE | 2021-03-02 21:35 | NUR ---
Patient discharged with v/s stable. Written and verbal after care instructions given and explained. Patient alert, oriented and verbalized understanding of instructions. Ambulatory with steady gait. All questions addressed prior to discharge. ID band removed. Patient advised to follow up with PMD. Rx of KEFLEX, HYDROCODONE/ACETAMINOPHEN given. Patient educated on indication of medication including possible reaction and side effects. Opportunity to ask questions provided and answered.
== END 2021-03-02 21:35 | disposition home or self-care (01) ==
LOC: MED 18:14
DX: N30.90 Cystitis, unspecified without hematuria (principal); Z90.49 Acquired absence of other specified parts of digestive tract; Z79.899 Other long term (current) drug therapy
CPT/HCPCS: 36415; 80053; 81002; 81025; 83690; 85025; 99284